=== PATIENT | male | born 2000 | race Caucasian/White ===

== ENCOUNTER 2019-10-12 19:24 | Emergency (ER) | payer SELFPAY ==
[~2019-10-12] VITALS: Ht 180.3 cm; Wt 65.9 kg
[2019-10-12 19:41] VITALS: BP 138/92
== END 2019-10-12 21:45 | disposition left against medical advice (07) ==
LOC: EMS 19:25
DX: J45.909 Unspecified asthma, uncomplicated (principal); Z53.21 Procedure and treatment not carried out due to patient leaving prior to being seen by health care provider